=== PATIENT | female | born 1940 | race Caucasian/White ===

== ENCOUNTER 2017-04-22 16:13 | Emergency (ER) | payer MEDICARE, BC ==
[2017-04-22] MEDS ORDERED: Ketorolac Tromethamine 30 MG/ML VIAL ONE (18:20)
--- NOTE | 2017-04-22 18:32 | RAD ---
RADIOGRAPH RIGHT HIP TWO VIEWS: Date: 04-22-17 History: 77-year-old female with non-traumatic right hip pain for one week. Comparison: None. FINDINGS: There is diffuse moderate to severe, fairly uniform right hip joint space narrowing. There is moderat e sclerosis and moderate osteophytosis, circumferentially involving the acetabulum. There are small s ubcapital osteophytes. The femoral head contour is not collapsed. No fracture is identified. There is diffuse osteopenia. There are severe degenerative disc changes at the lower lumbar spine. IMPRESSION: 1. Moderate to severe osteoarthrosis of the right hip. 2. Severe lower lumbar spondylosis. 3. Diffuse osteoporosis. POS: [facility]
== END 2017-04-22 18:38 | disposition home or self-care (01) ==
LOC: ERS 16:13
DX: M16.11 Unilateral primary osteoarthritis, right hip (principal); G89.29 Other chronic pain; M54.9 Dorsalgia, unspecified; I10 Essential (primary) hypertension
CPT/HCPCS: 96372; J1885

== ENCOUNTER 2017-11-29 10:50 | Outpatient (CLI) | payer MEDICARE, BC ==
[2017-11-29] MEDS ORDERED: ISOVUE-370 76%-LOCM 1 ML ONE (11:24)
== END 2017-11-29 10:51 | disposition home or self-care (01) ==
LOC: BICCT 10:50
PROVIDERS: ATTEND Urology
DX: R31.29 Other microscopic hematuria (principal); N28.1 Cyst of kidney, acquired; K76.89 Other specified diseases of liver; K57.30 Diverticulosis of large intestine without perforation or abscess without bleeding; Z90.49 Acquired absence of other specified parts of digestive tract
CPT/HCPCS: 74178; 81001; 82565; 87086

== ENCOUNTER 2017-12-18 10:43 | Outpatient (CLI) | payer MEDICARE, BC | END 2017-12-18 10:44 | disposition home or self-care (01) | LOC: BICMAMMO 10:43 | PROVIDERS: ATTEND Internal Medicine | DX: Z12.31 Encounter for screening mammogram for malignant neoplasm of breast (principal); Z80.3 Family history of malignant neoplasm of breast | CPT/HCPCS: 77063; 77067 ==

== ENCOUNTER 2018-03-02 23:19 | Emergency (ER) | payer MEDICARE, BC ==
--- NOTE | 2018-03-03 10:02 | RAD ---
RIGHT HIP 2 VIEWS: Date: 03/02/18 HISTORY: Fall with injury to right hip. FINDINGS/IMPRESSION: There is a right hip prosthesis. The components appear in adequate position and alignment. No fractur e or acute abnormality identified. POS: [facility]
--- NOTE | 2018-03-03 10:03 | RAD ---
2 VIEWS CHEST: Date: 03/03/18 PROVIDED CLINICAL HISTORY: Chest pain status post injury. COMPARISON: Cardiac silhouette appears enlarged. Vascular calcification involves the aortic arch. No focal consol idation, pleural fluid, or pneumothorax apparent. IMPRESSION: No evidence for an acute cardiopulmonary process. POS: [facility]
== END 2018-03-03 02:59 | disposition home or self-care (01) ==
LOC: ERS 23:19
DX: S20.211A Contusion of right front wall of thorax, initial encounter (principal); S70.01XA Contusion of right hip, initial encounter; F41.9 Anxiety disorder, unspecified; I10 Essential (primary) hypertension; G89.29 Other chronic pain; M54.9 Dorsalgia, unspecified; Z79.899 Other long term (current) drug therapy; W01.0XXA Fall on same level from slipping, tripping and stumbling without subsequent striking against object, initial encounter
CPT/HCPCS: 71046

== ENCOUNTER 2019-02-05 10:19 | Outpatient (CLI) | payer MEDICARE, BC ==
--- NOTE | 2019-02-05 12:17 | RAD ---
CERVICAL SPINE 7 VIEWS: Date: 02/05/19 Lateral views were obtained in neutral, flexion, and extension. INDICATION: Cervical radiculopathy. FINDINGS: Degenerative changes of the cervical spine noted. Loss of disc space with spondylolytic changes and s purring seen below C2. Spondylosis appears prominent posteriorly encroaching into the spinal canal at C3-4 and C4-5. Posterolisthesis at C3-4 and C4-5 appears to exacerbate with extension. IMPRESSION: Moderate degenerative changes of cervical spine, most pronounced at C3-4 and C4-5, as described above . POS: [facility]
--- NOTE | 2019-02-05 12:25 | MRI ---
MRI CERVICAL SPINE WITHOUT CONTRAST: INDICATIONS: Cervical radiculopathy. FINDINGS: Moderate multilevel degenerative changes are seen in the cervical spine. Loss of disk space is pronou nced at C3-C4, C4-C5, and C5-C6. There is slight anterolisthesis at C2-C3. Vertebral body height is m aintained. Vertebral body signal is preserved. At C2-C3 no significant abnormality. At C3-C4 posterior disk and spondylitic changes abut the anterior cord, producing slight flattening o f the anterior cord. No significant foraminal stenosis apparent. CT C4-C5 posterior disk bulge and spondylosis impinge on and mildly flatten the anterior cord. Eviden ce of mild foraminal narrowing due to facet and uncinate hypertrophy. At C5-C6 posterior disk bulge and spondylosis abut the anterior cord. Mild foraminal narrowing on the left due to facet and uncinate hypertrophy. At C6-C7 disk bulge and spondylosis efface the anterior subarachnoid space. There is asymmetric disk bulge and spondylitic change to the right, which impinges on the anterior cord on the right and encro aches into the right foramina. At C7-T1 no significant abnormality. Cervical cord signal is normally maintained. IMPRESSION: 1. Posterior disk and spondylitic changes at C3-C4, C4-C5, C5-C6 and C6-C7 are noted, as described ab ove. 2. Asymmetric disk/spondylosis projects to the right at C6-C7, as described above. POS: [facility]
== END 2019-02-05 10:20 | disposition home or self-care (01) ==
LOC: TBSIIMAG 10:19
PROVIDERS: ATTEND Anesthesiology Pain Medicine
DX: M50.11 Cervical disc disorder with radiculopathy, high cervical region (principal); M47.22 Other spondylosis with radiculopathy, cervical region
CPT/HCPCS: 72052; 72141

== ENCOUNTER 2019-03-06 08:48 | Outpatient (CLI) | payer MEDICARE, BC ==
--- NOTE | 2019-03-06 10:42 | CT ---
CT ABDOMEN AND PELVIS WITHOUT AND WITH IV CONTRAST: HISTORY: Recurrent urinary tract infection. Microhematuria. COMPARISON: 11/29/2017. FINDINGS: Each renal collecting system, ureter, and the urinary bladder are decompressed without stone apparent . No filling defects are evident within the urinary system on the delayed images. The right posteri or aspect of the urinary bladder is partially obscured by beam-hardening artifact from the right hip prosthesis. Multiple cysts of the kidneys are again demonstrated, measuring up to 3.5 cm at the lateral cortex of the right kidney and 2.2 cm at the inferior pole left kidney. No solid masses are apparent. Small cysts of the liver are again demonstrated. Calcified granulomata are consistent with healed gr anulomatous disease. Old bilateral rib fractures. Small hiatal hernia. Gallbladder is surgically a bsent. Calcification within the arterial structures. Diverticula arise from the colon without adjac ent inflammation. IMPRESSION: 1. No urinary tract abnormalities are demonstrated to explain hematuria. 2. Bilateral renal cysts, stable. 3. Atherosclerosis. 4. Small hiatal hernia. POS: [facility]
== END 2019-03-06 08:49 | disposition home or self-care (01) ==
LOC: BICCT 08:48
PROVIDERS: ATTEND Internal Medicine
DX: N39.0 Urinary tract infection, site not specified (principal); R31.29 Other microscopic hematuria; I70.90 Unspecified atherosclerosis; N28.1 Cyst of kidney, acquired; K44.9 Diaphragmatic hernia without obstruction or gangrene
CPT/HCPCS: 74178

== ENCOUNTER 2019-04-11 08:17 | Outpatient (CLI) | payer MEDICARE, BC ==
--- NOTE | 2019-04-11 17:58 | EKG ---
Test Reason : Blood Pressure : / mmHG Vent. Rate : 085 BPM Atrial Rate : 085 BPM P-R Int : 140 ms QRS Dur : 086 ms QT Int : 364 ms P-R-T Axes : 010 022 017 degrees QTc Int : 433 ms Normal sinus rhythm Normal ECG No previous ECGs available Confirmed by Debra GILLESPIE ([id number]) on 04/11/2019 5:58:10 PM Referred By: MARIXA Confirmed By:Debra GILLESPIE
== END 2019-04-11 08:18 | disposition home or self-care (01) ==
LOC: LABBT 08:17
PROVIDERS: ATTEND Neurological Surgery
DX: Z01.818 Encounter for other preprocedural examination (principal); M54.16 Radiculopathy, lumbar region
CPT/HCPCS: 93005; 93010

== ENCOUNTER 2019-04-18 06:08 | Day surgery (SDC) | payer MEDICARE, BC ==
[2019-04-18] MEDS ORDERED: Thrombin 5000 UNITS/5 ML VIAL ONE (07:01)
[2019-04-18] MEDS ORDERED: Lidocaine 2% Jelly 5 ML TUBE ONE (07:16)
[2019-04-18] MEDS ORDERED: Fentanyl 100 MCG/2 ML VIAL ONE (07:16)
[2019-04-18] MEDS ORDERED: Scopolamine 1.5 mg/72 hour Patch ONE (07:45)
[2019-04-18] MEDS ORDERED: Promethazine HCl 25 MG/ML VIAL ONE (07:48)
[2019-04-18 08:30] LABS: Anion Gap 11 mmol/L (10-20); BUN (Urea Nitrogen) 15 mg/dL (9.8-20.1); Calc. Creatinine Clearance 0 mL/min (70-130); Calcium 9.4 mg/dL (7.8-10.44); Carbon Dioxide 28 mmol/L (23-31); Chloride 106 mmol/L (98-107); Estimated GFR-MDRD 84; Glucose 91 mg/dL (83-110); Potassium 3.8 mmol/L (3.5-5.1); Sodium 141 mmol/L (136-145)
[2019-04-18] MEDS ORDERED: SUGAMMADEX SODIUM 500 MG/5 ML VIAL ONE (09:31)
[2019-04-18] MEDS ORDERED: Dexamethasone 20 MG/5 ML VIAL ONE (11:17)
[2019-04-18] MEDS ORDERED: PROPOFOL 200 MG/20 ML VIAL ONE (11:17)
[2019-04-18] MEDS ORDERED: ePHEDrine/0.9% NaCl/PF SYRINGE 50 mg/10 ml ONE (11:17)
[2019-04-18] MEDS ORDERED: Ondansetron PF 4 MG/2 ML Vial ONE (11:17)
[2019-04-18] MEDS ORDERED: Lidocaine 1% PF 5 ML VIAL ONE (11:17)
[2019-04-18] MEDS ORDERED: Rocuronium Bromide 10 MG/ML (10ML VIAL) ONE (11:17)
[2019-04-18] MEDS ORDERED: PHENYLEPHRINE-NS 100 MCG/ML 10 ML SYRINGE ONE (11:17)
[2019-04-18] MEDS ORDERED: Glycopyrrolate 0.2 MG/ML 5 ML SYRINGE ONE (11:17)
--- NOTE | 2019-04-18 12:43 | OP ---
DATE OF PROCEDURE: 04/18/2019 [employer] OPERATOR: Tulio Berry PA-C INDICATION: Pain. DIAGNOSIS: Cervical radiculopathy. PROCEDURE PERFORMED: Anterior cervical diskectomy and fusion, C4 through C6. ANESTHESIA: General. DESCRIPTION OF PROCEDURE: The patient was brought into the operating room and placed under general anesthesia. She was placed on table in a supine position. A transverse incision was planned over the lateral aspect of the neck on the right. After prepping and draping and after an appropriate perioperative pause, the incision was created. The underlying platysma muscle was identified and incised. A blunt tissue plane anterior to the sternocleidomastoid muscle was used to gain access to the prevertebral space. Self-retaining retractors were then placed and a C-arm image obtained to confirm the appropriate level. An annulotomy was then performed in the C5-C6 disk space, where disk material as well as anterior and posterior osteophytes were removed until the exiting nerve roots were decompressed. A 6-mm lordotic PEEK cage packed with allograft and autograft material was placed within the interbody space. We then redirected our attention to the level above at C4-C5, where again an annulotomy was performed. All disk material as well as anterior and posterior osteophytes were removed until that segment was decompressed. A 5-mm lordotic PEEK cage packed with allograft and autograft material was then placed within the interbody space. An anterior cervical plate was then fashioned from the spine and secured with a total of 6 screws. Midline and lateral structures were inspected and found to be free from significant trauma. The wound was irrigated. Hemostasis was maintained throughout. The wound was then closed in anatomic layers and a pressure dressing was applied. There were no known procedural complications. Job ID: [id number]
== END 2019-04-18 13:40 | disposition home or self-care (01) ==
LOC: SDC 06:08
PROVIDERS: ATTEND Neurological Surgery
PROC: 0RG20A0 Fusion of 2 or more Cervical Vertebral Joints with Interbody Fusion Device, Anterior Approach, Anterior Column, Open Approach (ICD-10-PCS; principal; 2019-04-18)
PROC: 0RT30ZZ Resection of Cervical Vertebral Disc, Open Approach (ICD-10-PCS; 2019-04-18)
DX: M54.12 Radiculopathy, cervical region (principal); I10 Essential (primary) hypertension; E78.5 Hyperlipidemia, unspecified; M19.90 Unspecified osteoarthritis, unspecified site; F41.9 Anxiety disorder, unspecified; Z79.899 Other long term (current) drug therapy; Z88.7 Allergy status to serum and vaccine
CPT/HCPCS: 20930; 20936; 22551; 22552; 22845; 22853 ×2; 76000; 80048; C1713 ×2; C1776; 36415; J0690; J1100; J2001; J2405; J2550; J2704; J3010; J7620

== ENCOUNTER 2019-06-25 09:38 | Outpatient (CLI) | payer MEDICARE, BC ==
--- NOTE | 2019-06-25 10:27 | MMO ---
Bilateral MAMMO Bilat Screen [facility]. CLINICAL HISTORY: Patient is 79 years old and is seen for screening. The patient has no family history of breast cancer. The patient has no personal history of cancer. VIEWS: The views performed were: bilateral craniocaudal with tomosynthesis and bilateral mediolateral oblique with tomosynthesis. FILMS COMPARED: The present examination has been compared to prior imaging studies performed at [facility] on 09/17/2014, 11/30/2015, 12/11/2016 and 12/18/2017. This study has been interpreted with the assistance of computer-aided detection. MAMMOGRAM FINDINGS: There are scattered fibroglandular densities. There are vascular calcifications seen in both breasts. There are no suspicious masses, suspicious calcifications, or new areas of architectural distortion. IMPRESSION: A ROUTINE FOLLOW-UP MAMMOGRAM IN 1 YEAR IS RECOMMENDED. THE RESULTS OF THIS EXAM WERE SENT TO THE PATIENT. ACR BI-RADS Category 2 - Benign finding MAMMOGRAPHY NOTE: 1. A negative mammogram report should not delay a biopsy if a dominant of clinically suspicious mass is present. 2. Approximately 10% to 15% of breast cancers are not detected by mammography. 3. Adenosis and dense breasts may obscure an underlying neoplasm. Reported by: CELENA MONIQUE MD Electonically Signed: [id number]
--- NOTE | 2019-06-25 11:07 | BD ---
DEXA BONE DENSITY STUDY: Date: 06/25/2019 HISTORY: Postmenopausal. FINDINGS: Lumbar Spine: BMD (g/cm2) L1 0.663 T-Score: -3.0 L2 0.633 T-Score: -3.6 L3 0.784 T-Score: -2.7 L4 0.846 T-Score: -2.0 Total 0.738 T-Score: -2.8 Left Femoral Neck: 0.426 T-Score: -3.8 Total Femur: 0.644 T-Score: -2.4 IMPRESSION: Osteoporosis of lumbar spine and left femoral neck. POS: [facility]
== END 2019-06-25 09:39 | disposition home or self-care (01) ==
LOC: BICMAMMO 09:38
PROVIDERS: ATTEND Internal Medicine
DX: Z12.31 Encounter for screening mammogram for malignant neoplasm of breast (principal); Z13.820 Encounter for screening for osteoporosis; Z78.0 Asymptomatic menopausal state; M81.0 Age-related osteoporosis without current pathological fracture
CPT/HCPCS: 77063; 77067; 77080

== ENCOUNTER 2020-07-08 14:33 | Outpatient (CLI) | payer MEDICARE, BC | END 2020-07-08 14:34 | disposition home or self-care (01) | LOC: BICMAMMO 14:33 | PROVIDERS: ATTEND Internal Medicine | DX: Z12.31 Encounter for screening mammogram for malignant neoplasm of breast (principal); M81.0 Age-related osteoporosis without current pathological fracture; M85.88 Other specified disorders of bone density and structure, other site | CPT/HCPCS: 77063; 77067; 77080 ==

== ENCOUNTER 2021-10-25 08:51 | Outpatient (CLI) | payer MEDICARE, BC | END 2021-10-25 08:52 | disposition home or self-care (01) | LOC: BICMAMMO 08:51 | PROVIDERS: ATTEND Internal Medicine | DX: Z12.31 Encounter for screening mammogram for malignant neoplasm of breast (principal) | CPT/HCPCS: 77063; 77067 ==

== ENCOUNTER 2021-10-31 09:27 | Outpatient (CLI) | payer MEDICARE, BC | END 2021-10-31 09:28 | disposition home or self-care (01) | LOC: BICRAD 09:27 | PROVIDERS: ATTEND Internal Medicine | DX: M47.816 Spondylosis without myelopathy or radiculopathy, lumbar region (principal); M25.552 Pain in left hip; M43.16 Spondylolisthesis, lumbar region; M16.12 Unilateral primary osteoarthritis, left hip | CPT/HCPCS: 72100 ==

== ENCOUNTER 2024-01-23 08:44 | Day surgery (SDC) | payer MEDICARE ==
[2024-01-16 09:37] VITALS: BMI 24.1
[2024-01-23] MEDS ORDERED: EPINEPHrine 1 MG/ML VIAL ONE (08:56)
[2024-01-23] MEDS ORDERED: Bupivacaine 0.25% HCL 30 ML VIAL ONE (08:56)
[2024-01-23] MEDS ORDERED: Bacitracin Zinc Ointment 30 gm TUBE ONE (08:56)
[2024-01-23] MEDS ORDERED: PROPOFOL 0 ML ONE (10:30)
[2024-01-23] MEDS ORDERED: fentaNYL PF 100 MCG/2 ML SYRINGE ONE (10:30)
[2024-01-23] MEDS ORDERED: Sodium Chloride 0.9% 100 ML ONE (10:42)
[2024-01-23] MEDS ORDERED: cefOXitin 2 GM VIAL ONE (10:42)
[2024-01-23] MEDS ORDERED: Rocuronium Bromide 10 MG/ML (10ML VIAL) ONE (11:10)
[2024-01-23] MEDS ORDERED: Lidocaine 1% PF 5 ML VIAL ONE (11:10)
[2024-01-23] MEDS ORDERED: Ondansetron PF 4 MG/2 ML Vial ONE (11:18)
[2024-01-23] MEDS ORDERED: Dexamethasone 4 mg/ml Vial ONE (11:18)
[2024-01-23] MEDS ORDERED: ePHEDrine Sulfate 50 MG/10 ML VIAL ONE (11:23)
[2024-01-23] MEDS ORDERED: PROPOFOL 20 ML ONE (11:26)
[2024-01-23] MEDS ORDERED: SUGAMMADEX SODIUM 200 MG/2 ML VIAL ONE (11:43)
== END 2024-01-23 14:12 | disposition home or self-care (01) ==
LOC: SDC 08:44
PROVIDERS: ATTEND Surgery
PROC: 06BY0ZC Excision of Hemorrhoidal Plexus, Open Approach (ICD-10-PCS; principal; 2024-01-23)
DX: K64.8 Other hemorrhoids (principal); I10 Essential (primary) hypertension; E66.9 Obesity, unspecified; Z79.899 Other long term (current) drug therapy
CPT/HCPCS: 46947; J0171; J0665; J0694; J1100; J2405; J2704; 88304

== ENCOUNTER 2024-12-29 21:57 | Inpatient (IN) | payer MEDICARE ==
[2024-12-30 00:08] LABS: #Basophils Less than 0.03 10x3/uL (0.0-0.2); #Eosinophils 0.31 10x3/uL (0.0-0.7); #Monocytes 0.69 10x3/uL (0.11-0.59); #Neutrophils 4.74 10x3/uL (1.40-6.50); %Basophils 0.3 % (0.0-1.0); %Eosinophils 4.2 % (0.0-10.0); %Lymphocytes 21.0 % (21.0-51.0); %Monocytes 9.4 % (0.0-10.0); %Neutrophils 64.7 % (42.0-75.0); Hematocrit 34.9 % (36.0-47.0); Hemoglobin 11.2 g/dL (12.0-16.0); Mean Corpuscular Hemoglobin 26.4 pg (27.0-31.0); Mean Corpuscular Volume 82.3 fL (78.0-98.0); Platelet Count 270 10x3/uL (130-400); Red Blood Cell (RBC) Count 4.24 mill/uL (4.20-5.40); White Blood Cell (WBC) Count 7.33 10x3/uL (4.8-10.8)
[2024-12-30 00:29] LABS: ALT (SGPT) 7 U/L (Less than 34); AST (SGOT) 14 U/L (11-34); Albumin 3.2 g/dL (3.1-4.5); Alkaline Phosphatase 88 U/L (40-110); Anion Gap 14 mmol/L (10-20); BUN (Urea Nitrogen) 13 mg/dL (9.8-20.1); Bilirubin, Total 0.6 mg/dL (0.3-1.2); Calc. Creatinine Clearance 0 mL/min (70-130); Calcium 9.2 mg/dL (7.8-10.44); Carbon Dioxide 27 mmol/L (23-31); Chloride 108 mmol/L (98-107); Globulin 2.9 g/dL (2.4-3.5); Glucose 109 mg/dL (83-110); Potassium 3.5 mmol/L (3.5-5.1); Sodium 145 mmol/L (136-145)
[2024-12-30] MEDS ORDERED: Glucagon 1 MG/ML KIT IM PRN (01:05)
[2024-12-30] MEDS ORDERED: Dextrose 50% Abboject 50 ML SYRINGE SLOW IVP PRN (01:05)
[2024-12-30] MEDS ORDERED: Methocarbamol 500 MG TAB PO PRN (01:10)
[2024-12-30] MEDS: Acetaminophen 325 MG TAB PO PRN (04:29)
[2024-12-30 05:56] LABS: #Basophils 0.03 10x3/uL (0.0-0.2); #Eosinophils 0.20 10x3/uL (0.0-0.7); #Monocytes 0.67 10x3/uL (0.11-0.59); #Neutrophils 4.56 10x3/uL (1.40-6.50); %Basophils 0.5 % (0.0-1.0); %Eosinophils 3.0 % (0.0-10.0); %Lymphocytes 17.5 % (21.0-51.0); %Monocytes 10.1 % (0.0-10.0); %Neutrophils 68.6 % (42.0-75.0); Hematocrit 33.1 % (36.0-47.0); Hemoglobin 10.4 g/dL (12.0-16.0); Mean Corpuscular Hemoglobin 26.0 pg (27.0-31.0); Mean Corpuscular Volume 82.8 fL (78.0-98.0); Platelet Count 256 10x3/uL (130-400); Red Blood Cell (RBC) Count 4.00 mill/uL (4.20-5.40); White Blood Cell (WBC) Count 6.64 10x3/uL (4.8-10.8)
[2024-12-30 06:17] LABS: Anion Gap 13 mmol/L (10-20); BUN (Urea Nitrogen) 12 mg/dL (9.8-20.1); Calc. Creatinine Clearance 0 mL/min (70-130); Calcium 9.0 mg/dL (7.8-10.44); Carbon Dioxide 23 mmol/L (23-31); Chloride 110 mmol/L (98-107); Glucose 109 mg/dL (83-110); Potassium 3.4 mmol/L (3.5-5.1); Sodium 143 mmol/L (136-145)
[2024-12-30] MEDS: Methocarbamol 500 MG TAB PO SCH (08:26)
[2024-12-30 08:28] VITALS: BMI 26.9
[2024-12-30] MEDS: Ondansetron PF 4 MG/2 ML Vial IVP PRN (11:03)
[2024-12-30] MEDS: Acetaminophen 325 MG TAB PO SCH (16:45)
[2024-12-30] MEDS: PNEUMOC 20-VAL CONJ-DIP CRM/PF 0.5 ML SYRINGE IM ONE (16:47)
[2024-12-30] MEDS: Apixaban 5 MG TAB PO SCH (20:00)
[2024-12-30] MEDS ORDERED: Enoxaparin 40 MG (0.4 mL) SYRINGE SC SCH (21:00)
[2024-12-30] MEDS ORDERED: Aspirin Chewable 81 MG TAB PO SCH (21:00)
[2024-12-30] MEDS: Transdermal Patch Removal TOP SCH (21:55)
[2024-12-31] MEDS: hydrALAZINE 20 MG/ML VIAL SLOW IVP PRN (06:18)
[2024-12-31 07:07] LABS: #Basophils Less than 0.03 10x3/uL (0.0-0.2); #Eosinophils 0.14 10x3/uL (0.0-0.7); #Monocytes 0.59 10x3/uL (0.11-0.59); #Neutrophils 3.84 10x3/uL (1.40-6.50); %Basophils 0.4 % (0.0-1.0); %Eosinophils 2.5 % (0.0-10.0); %Lymphocytes 18.1 % (21.0-51.0); %Monocytes 10.5 % (0.0-10.0); %Neutrophils 68.1 % (42.0-75.0); Hematocrit 33.6 % (36.0-47.0); Hemoglobin 10.4 g/dL (12.0-16.0); Mean Corpuscular Hemoglobin 26.3 pg (27.0-31.0); Mean Corpuscular Volume 84.8 fL (78.0-98.0); Platelet Count 242 10x3/uL (130-400); Red Blood Cell (RBC) Count 3.96 mill/uL (4.20-5.40); White Blood Cell (WBC) Count 5.63 10x3/uL (4.8-10.8)
[2024-12-31 07:31] LABS: Anion Gap 12 mmol/L (10-20); BUN (Urea Nitrogen) 8 mg/dL (9.8-20.1); Calc. Creatinine Clearance 103 mL/min (70-130); Calcium 8.9 mg/dL (7.8-10.44); Carbon Dioxide 24 mmol/L (23-31); Chloride 108 mmol/L (98-107); Glucose 99 mg/dL (83-110); Potassium 3.3 mmol/L (3.5-5.1); Sodium 141 mmol/L (136-145)
[2024-12-31 16:18] VITALS: BMI 26.9
[2024-12-31] MEDS: Senokot S 8.6-50 MG TAB PO SCH (21:00)
[2025-01-01] MEDS: Melatonin 3 MG TAB PO SCH (00:22)
[2025-01-01] MEDS: Aspirin 81 mg Enteric Coated Tablet PO SCH (08:04)
[2025-01-01] MEDS: Metoprolol Succinate XL 25 MG ER.TAB PO SCH (08:04)
[2025-01-01] MEDS: Furosemide 20 MG TAB PO SCH (08:04)
[2025-01-01] MEDS: Pantoprazole 40 MG DR.TAB PO SCH (08:04)
[2025-01-01] MEDS: Losartan 25 MG TAB PO SCH (08:05)
[2025-01-01 12:09] LABS: ALT (SGPT) Less than 7 U/L (Less than 34); AST (SGOT) 14 U/L (11-34); Albumin 3.2 g/dL (3.1-4.5); Alkaline Phosphatase 90 U/L (40-110); Anion Gap 12 mmol/L (10-20); BUN (Urea Nitrogen) 11 mg/dL (9.8-20.1); Bilirubin, Total 0.8 mg/dL (0.3-1.2); Calc. Creatinine Clearance 90 mL/min (70-130); Calcium 9.2 mg/dL (7.8-10.44); Carbon Dioxide 25 mmol/L (23-31); Chloride 104 mmol/L (98-107); Globulin 3.0 g/dL (2.4-3.5); Glucose 111 mg/dL (83-110); Potassium 3.8 mmol/L (3.5-5.1); Sodium 137 mmol/L (136-145)
[2025-01-01 14:06] LABS: #Basophils Less than 0.03 10x3/uL (0.0-0.2); #Eosinophils 0.07 10x3/uL (0.0-0.7); #Monocytes 0.92 10x3/uL (0.11-0.59); #Neutrophils 4.72 10x3/uL (1.40-6.50); %Basophils 0.3 % (0.0-1.0); %Eosinophils 1.0 % (0.0-10.0); %Lymphocytes 14.3 % (21.0-51.0); %Monocytes 13.7 % (0.0-10.0); %Neutrophils 70.3 % (42.0-75.0); Hematocrit 31.9 % (36.0-47.0); Hemoglobin 10.0 g/dL (12.0-16.0); Mean Corpuscular Hemoglobin 26.6 pg (27.0-31.0); Mean Corpuscular Volume 84.8 fL (78.0-98.0); Platelet Count 279 10x3/uL (130-400); Red Blood Cell (RBC) Count 3.76 mill/uL (4.20-5.40); White Blood Cell (WBC) Count 6.72 10x3/uL (4.8-10.8)
[2025-01-01 21:04] VITALS: BP 137/73; TEMP 98.4
== END 2025-01-01 23:44 | disposition home or self-care (01) | DRG 185 ==
LOC: ERS 21:57 → SURG B 12-30 01:05 → OBSVTOIN 12-30 01:05
PROVIDERS: ADMIT Surgery Trauma Surgery; ATTEND Surgery Trauma Surgery
DX: S22.41XA Multiple fractures of ribs, right side, initial encounter for closed fracture (principal); M54.50 Low back pain, unspecified; M25.551 Pain in right hip; I10 Essential (primary) hypertension; M85.89 Other specified disorders of bone density and structure, multiple sites; E11.22 Type 2 diabetes mellitus with diabetic chronic kidney disease; I25.10 Atherosclerotic heart disease of native coronary artery without angina pectoris; J32.3 Chronic sphenoidal sinusitis; E87.6 Hypokalemia; I48.91 Unspecified atrial fibrillation; Z96.641 Presence of right artificial hip joint; F03.90 Unspecified dementia, unspecified severity, without behavioral disturbance, psychotic disturbance, mood disturbance, and anxiety; K58.9 Irritable bowel syndrome, unspecified; W19.XXXA Unspecified fall, initial encounter; I25.2 Old myocardial infarction; Z98.890 Other specified postprocedural states; Z90.49 Acquired absence of other specified parts of digestive tract; Z98.51 Tubal ligation status; Z90.710 Acquired absence of both cervix and uterus; Z88.8 Allergy status to other drugs, medicaments and biological substances; Z91.011 Allergy to milk products
CPT/HCPCS: 36415; 36416; 70450; 71045; 71250; 72125; 80048; 80053; 85025; 94640; 96374; 96376; G0390; J0360; J2405; J3010; J7030; J7620